=== PATIENT | male | born 1985 | race Caucasian/White ===

== ENCOUNTER 2019-10-18 17:29 | Emergency (ER) | payer SELFPAY ==
[2019-10-18 17:40] VITALS: BP 127/88; PULSE 89; RESP 16; TEMP 36.8; O2SAT 97; BMI 25.8
--- NOTE | 2019-10-18 17:46 | DI.CT.S_ITS ---
PROCEDURE: CT STROKE INDICATIONS: left sided weakness/numbness improving, confused 1-2 days ag TECHNIQUE: Noncontrast 4.5 mm thick angled axial sections acquired from the foramen magnum to the vertex, with coronal reformats. For radiation dose reduction, the following was used: automated exposure control, adjustment of mA and/or kV according to patient size. COMPARISON: None. FINDINGS: Image quality: Excellent. CSF spaces: Basal cisterns are patent. No extra-axial fluid collections. Ventricles are normal in size and shape. Brain: No midline shift. No intracranial masses or hemorrhage. Brown-white matter interface is normal. Skull and face: Calvarium and visualized facial bones are intact, without suspicious lesions. Sinuses: Visualized sinuses and mastoids are clear. IMPRESSION: Normal examination, no area of stroke or mass, or hemorrhage is found. Source of current symptoms is not identified. Dictated by: Ralph Ordoñez M.D. on 10/18/2019 at 18:26 Approved by: Ralph Ordoñez M.D. on 10/18/2019 at 18:29
[2019-10-18 18:02] LABS: INR 1.1 (0.9-1.3); Prothrombin Time 12.2 SECONDS (10.1-12.7)
[2019-10-18] MEDS: SODIUM CHLORIDE 0.9% 1,000 ML 150 ML IV (18:03)
[2019-10-18 18:04] LABS: BUN Creatinine Ratio 13.2 (6-22); Blood Urea Nitrogen 10 mg/dL (9-20); Calcium 9.2 mg/dL (8.4-10.2); Carbon Dioxide 20 mmol/L (22-32); Chloride 106 mmol/L (98-107); Estimated Glomerular Filt Rate > 60.0 mL/min (>60); Glucose 113 mg/dL (70-100); HEMOLYSIS < 15 (0-50); PTT Partial Thromboplastin Tim 31 SECONDS (26.4-36.2); Potassium 3.7 mmol/L (3.4-5.1); Sodium 139 mmol/L (137-145)
--- NOTE | 2019-10-18 18:08 | ED_ITS ---
HPI - Neuro Symptoms/Deficit General Chief Complaint: Neuro Symptoms/Deficit Stated Complaint: Left Sided Weakness Time Seen by Provider: 10/18/19 17:46 Source: patient and EMS Mode of arrival: EMS Limitations: no limitations History of Present Illness HPI Narrative: 33M nonsmoker with noncontributory medical history presents by EMS for evaluation of vague neurologic symptoms over the course of the week. He 1st noticed palpitations, racing heart, dizziness and lightheadedness on Sunday. He states the symptoms lasted about 3 hours and then went away. He denied any chest pain at any point time. He has had no injury, fever or chills. He denies any headache. He has had other symptoms off and on including some blurred vision, fatigue and mentions left-sided numbness and tingling that has been present since at least yesterday. He denies any new medications or dietary change. He denies any illicit drugs. He takes no prescription medications. He denies any exposure persons known to have coronavirus and denies any use of blood thinners. He denies any obvious provocation or palliation of his symptom s. He states that he is asymptomatic on arrival Onset (ago): day(s) Location: left arm, left leg and ataxia History of same: No Severity: moderate Quality: weak, numb, tingling and improving Relieving factors: none Exacerbating factors: none On Anticoagulants: No Associated symptoms: confusion Treatments Prior to Arrival: none Review of Systems Constitutional Constitutional: Denies chills, Denies fatigue, Denies fever(s), Denies frequent falls, Denies lethargy and Reports weakness Eyes Eyes: Denies change in vision, Denies eye discharge, Denies irritation and Denies loss of vision ENT Ears, Nose, Mouth, and Throat: Denies change in voice, Reports dizziness, Denies neck pain, Denies sore throat and Denies throat swelling Cardiovascular Cardiovascular: Denies chest pain, Denies irregular heart rhythm, Denies lightheadedness, Denies palpitations, Denies dyspnea, Denies dyspnea on exertion and Denies orthopnea Respiratory Respiratory: Denies cough, Denies dyspnea, Denies dyspnea on exertion and Denies wheezing Gastrointestinal Gastrointestinal: Denies abdominal pain, Denies change in bowel habits, Denies diarrhea, Denies nausea and Denies vomiting Genitourinary Genitourinary: Denies hematuria, Denies flank pain, Denies urinary incontinence and Denies urinary urgency Musculoskeletal Musculoskeletal: Denies back pain, Denies muscle weakness, Denies neck pain, Denies numbness and Reports tingling Integumentary/Breasts Skin/Breast: Denies pruritus, Denies erythema, Denies rash and Denies wounds Neurologic Neurologic: Denies behavioral changes, Reports confusion, Reports dizziness, Denies frequent falls, Denies loss of vision, Denies numbness, Reports tingling and Reports weakness Psychiatric Psychiatric: Denies anxiety, Denies behavioral changes, Reports confusion, Denies depression, Denies homicidal ideation and Denies suicidal ideation Endocrine Endocrine: Denies fatigue, Denies flushing and Denies palpitations Hematologic/Lymphatic Hematologic/Lymphatic: Denies easy bruising Allergic/Immunologic Allergic/Immunologic: Denies urticaria, Denies throat swelling and Denies wheezing Patient History Social History Smoking Status: Never smoker Smoking Status: Never smoker alcohol intake frequency: 0-2 drinks per day Substance Use Type: does not use Exam Narrative Exam Narrative: GENERAL: [33] year old patient appears stated age. Well-nou rished, well-developed patient, in mild distress. HEAD: Atraumatic. Normocephalic. EYES: Pupils equal round and reactive. Extraocular motions intact. No scleral icterus. No injection or drainage. ENT: Nose without bleeding, purulent drainage. Throat without erythema, tonsillar hypertrophy or exudate. Airway patent. NECK: Trachea midline. Non tender CARDIOVASCULAR: Regular rate and rhythm without murmurs, gallops, or rubs. RESPIRATORY: Clear to auscultation. Breath sounds equal bilaterally. No wheezes, rales, or rhonchi. GASTROINTESTINAL: Abdomen soft, non-tender, nondistended. EXTREMITIES: No edema or joint tenderness. BACK: Nontender without deformity or crepitance. No flank tenderness. NEURO: AOx3. SKIN: No rash or erythema of visible areas NIH Stroke Scale 1a. LOC: Patient is alert and keenly responsive (0) 1b. LOC Questions: Patient answers both LOC questions accurately (0) 1c. LOC Commands: Patient performs both tasks correctly (0) 2. Best Gaze: Normal (0) 3. Visual: No visual loss (0) 4. Facial palsy: Normal symmetrical movements (0) 5. Motor arm: No drift (0) 6. Motor leg: No drift (0) 7. Limb ataxia: Absent (0) 8. Sensory: Normal (0) 9. Best language: No aphasia; normal (0) 10. Dysarthria: Normal (0) 11. Extinction and inattention: No abnormality (0) NIHSS: 0 Initial Vital Signs Initial Vital Signs: Vital Signs Temperature 98.3 F 10/18/19 17:40 Pulse Rate 89 10/18/19 17:40 Respiratory Rate 16 10/18/19 17:40 Blood Pressure 127/88 10/18/19 17:40 Pulse Oximetry 97 10/18/19 17:40 Course Orders Ordered: ED Orders 10/18/19 17:31 EKG-12 Lead Stat 10/18/19 17:36 Basic Metabolic Panel Stat Complete Blood Count AUTO DIFF Stat Partial Thromboplastin Time Stat Prothrombin Time INR Stat 10/18/19 17:46 CT Stroke Stat 10/18/19 18:28 CT angio head and neck Stat 10/18/19 19:38 Urine Culture Stat Urine Drug Screen, Rapid Stat Urine Microscopic Stat Discontinued Medications Sodium Chloride (Normal Saline 0.9%) 1,000 mls @ 150 mls/hr IV CONT ANGELA Last Infusion: 10/18/19 20:27 Dose: 0 mls/hr Documented by: Admin: 10/18/19 18:03 Dose: 150 mls/hr Documented by: CHARLENE Vital Signs Vital signs: Vital Signs - 8 hr 10/18/19 18:22 10/18/19 18:55 10/18/19 19:30 Pulse Rate 92 H 82 95 H Respiratory Rate 13 16 21 Blood Pressure Blood Pressure [Left Arm] 126/82 124/76 144/84 H Pulse Oximetry 99 98 10/18/19 20:00 10/18/19 20:28 Pulse Rate 84 81 Respiratory Rate 17 14 Blood Pressure 131/81 Blood Pressure [Left Arm] 130/81 Pulse Oximetry 97 99 MDM - Neuro Symptoms/Deficit Lab Data Result diagrams: 10/18/19 17:36 10/18/19 17:36 Labs: Lab Results 10/18/19 10/18/19 10/18/19 Range/Units 17:36 17:36 17:36 WBC 7.5 (4.5-11.0) X10^3/uL RBC 5.14 (4.5-5.9) X10^6/uL Hgb 15.8 (13.5-17.5) g/dL Hct 44.1 (41-53) % MCV 85.9 (80-100) fL MCH 30.7 (26-34) PG MCHC 35.7 (30-36) % RDW 12.6 (11.6-14.8) % Plt Count 288 (150-400) X10^3/uL Neut % (Auto) 86.3 H (50-75) % Lymph % (Auto) 8.8 L (25-40) % [place] % (Auto) 4.4 (3-14) % Eos % (Auto) 0.2 L (2-4) % Baso % (Auto) 0.3 (0-2) % Neut # (Auto) 6500 (3736-9577) /uL Lymph # (Auto) 700 L (2192-3594) /uL [place] # (Auto) 300 (0-900) /uL Eos # (Auto) 0 (0-450) /uL Baso # (Auto) 0 (0-100) /uL PT 12.2 (10.1-12.7) SECONDS INR 1.1 (0.9-1.3) APTT 31 (26.4-36.2) SECONDS Sodium 139 (137-145) mmol/L Potassium 3.7 (3.4-5.1) mmol/L Chloride 106 (98-107) mmol/L Carbon Dioxide 20 L (22-32) mmol/L BUN 10 (9-20) mg/dL Creatinine 0.76 (0.66-1.25) mg/dL Estimated GFR > 60.0 (>60) mL/min BUN/Creatinine Ratio 13.2 (6-22) Glucose 113 H (70-100) mg/dL Calcium 9.2 (8.4-10.2) mg/dL Urine RBC (0-5/HPF) Urine WBC (0-5/HPF) Urine Bacteria (None) Ur Culture Indicated? U Opiates 300ng/mL cut (Negative) Ur Oxycodone Screen (Negative) Urine Methadone Screen (Negative) Ur Barbiturates Screen (Negative) U Tricyclic Antidepress (Negative) Ur Phencyclidine Scrn (Negative) Ur Amphetamines Screen (Negative) U Methamphetamines Scrn (Negative) Ur MDMA Scrn (Ecstasy) (Negative) U Benzodiazepines Scrn (Negative) Urine Cocaine Screen (Negative) U Marijuana (THC) Screen (Negative) 10/18/19 10/18/19 Range/Units 19:38 19:38 WBC (4.5-11.0) X10^3/uL RBC (4.5-5.9) X10^6/uL Hgb (13.5-17.5) g/dL Hct (41-53) % MCV (80-100) fL MCH (26-34) PG MCHC (30-36) % RDW (11.6-14.8) % Plt Count (150-400) X10^3/uL Neut % (Auto) (50-75) % Lymph % (Auto) (25-40) % [place] % (Auto) (3-14) % Eos % (Auto) (2-4) % Baso % (Auto) (0-2) % Neut # (Auto) (4329-3521) /uL Lymph # (Auto) (1327-2121) /uL [place] # (Auto) (0-900) /uL Eos # (Auto) (0-450) /uL Baso # (Auto) (0-100) /uL PT (10.1-12.7) SECONDS INR (0.9-1.3) APTT (26.4-36.2) SECONDS Sodium (137-145) mmol/L Potassium (3.4-5.1) mmol/L Chloride (98-107) mmol/L Carbon Dioxide (22-32) mmol/L BUN (9-20) mg/dL Creatinine (0.66-1.25) mg/dL Estimated GFR (>60) mL/min BUN/Creatinine Ratio (6-22) Glucose (70-100) mg/dL Calcium (8.4-10.2) mg/dL Urine RBC 0-1/hpf (0-5/HPF) Urine WBC None seen (0-5/HPF) Urine Bacteria Occasional (0-1) (None) Ur Culture Indicated? Specimen cultured U Opiates 300ng/mL cut Negative (Negative) Ur Oxycodone Screen Negative (Negative) Urine Methadone Screen Negative (Negative) Ur Barbiturates Screen Negative (Negative) U Tricyclic Antidepress Negative (Negative) Ur Phencyclidine Scrn Negative (Negative) Ur Amphetamines Screen Negative (Negative) U Methamphetamines Scrn Negative (Negative) Ur MDMA Scrn (Ecstasy) Negative (Negative) U Benzodiazepines Scrn Negative (Negative) Urine Cocaine Screen Negative (Negative) U Marijuana (THC) Screen Positive H (Negative) Point of Care Testing Glucose POC 101 Urine Dip Bedside Urine Glucose Negative Bedside Urine Bilirubin - Negative Bedside Urine Ketone ++ 40 Urine Specific Benedict 1.015 Bedside Urine Occult Blood - Negative Bedside Urine pH 6.5 Bedside Urine Protein - Negative Bedside Urine Urobilinogen - Negative Bedside Urine Nitrite - Negative Bedside Urine Leukocytes +/- [address] scan - head: Radiologist's Impression: [address] [address] [address] Scan Report Signed Patient: Alix Bradford#: [id number] : 1985Acct:[id number] Age/Sex: 33 / MDate of Service: 10/18/19 Loc: ED Accession Number: [id number] Procedure: CT Stroke Ordering Provider: Karon Plata D.O. PROCEDURE: CT STROKE INDICATIONS: left sided weakness/numbness improving, confused 1-2 days ag TECHNIQUE: Noncontrast 4.5 mm thick angled axial sections acquired from the foramen magnum to the vertex, with coronal reformats. For radiation dose reduction, the following was used: automated exposure control, adjustment of mA and/or kV according to patient size. COMPARISON: None. FINDINGS: Image quality: Excellent. CSF spaces: Basal cisterns are patent. No extra-axial fluid collections. Ve ntricles are normal in size and shape. Brain: No midline shift. No intracranial masses or hemorrhage. Brown-white matter interface is normal. Skull and face: Calvarium and visualized facial bones are intact, without suspicious lesions. Sinuses: Visualized sinuses and mastoids are clear. IMPRESSION: Normal examination, no area of stroke or mass, or hemorrhage is found. Source of current symptoms is not identified. Dictated by: Ralph Ordoñez M.D. on 10/18/2019 at 18:26 Approved by: Ralph Ordoñez M.D. on 10/18/2019 at 18:29 CTA Head/Neck: Radiologist's Impression: Chart Viewer Diagnostics DATE TYPE STATUS AUTHOR Hx 10/18/19 18:28 Ralph Ordoñez 10/18/19 17:46 Ralph Ordoñez Jacob 33, M1985 [facility] ED 167.64cm 72.575kg BMI: 25.8kg/m? Neuro Symptoms/Deficit Search Chart No Data to Display No Data to Display No Data to Display ONSET 10/18/19 20:28 Calvin Bradford 33 M 1985 [place] [address] CT Scan Report Signed Patient: Calvin BradfordMR#: [id number] : 1985Acct:[id number] Age/Sex: 33 / MDate of Service: 10/18/19 Loc: ED Accession Number: [id number] Procedure: CT angio head and neck Ordering Provider: Ralf Pinto D.O. PROCEDURE: CT ANGIO HEAD AND NECK INDICATIONS: stroke like symptoms, left sided weakness, balance trouble TECHNIQUE: Pre-contrast 4.5 mm thick sections acquired from the foramen magnum to the vertex. After the administration of intravenous contrast, 1 mm thick sections acquired from the aortic arch through the [place] of [place]. Post-contrast 4.5 mm thick sections then re- acquired from the foramen magnum to the vertex. 3-dimensional maximum -intensity-projection (MIP) and/or volume rendering reformats were acquired of the central intracranial vasculature and neck separately. COMPARISON: None. FINDINGS: Image quality: Excellent. BRAIN: CSF spaces: Ventricles are normal in size and shape. Basal cisterns are patent. No extra-axial fluid collections. Brain: No midline shift. No intracranial bleeds or masses. Brown-white matter interface appears intact. Skull and face: Calvarium and facial bones appear intact, without suspicious lesions. Orbits appear normal. Sinuses: Sinuses and mastoids are clear. HEAD CT ANGIOGRAPHY: Anterior circulation: Intracranial internal carotid arteries are normal in size and flow. The flow within the paired anterior cerebral arteries is normal and symmetric. The flow within the middle cerebral arteries is normal and symmetric. The anterior communicating artery is seen. No aneurysms are seen. Posterior circulation: Visualized portions of the vertebral arteries demonstrate normal caliber, and join to form a normal appearing basilar artery. Flow within the po sterior cerebral arteries is normal and symmetric. No aneurysms are seen. NECK CT ANGIOGRAPHY: Carotid system: The great vessels demonstrate a conventional anatomy as they arise from the aortic arch. The origins of the common carotid arteries appear patent. The common carotid arteries demonstrate normal caliber and courses. The bifurcation regions are both widely patent. The internal carotid arteries demonstrate normal calibers and courses. Posterior circulation: The origins of the vertebral arteries both appear widely patent. The more superior extracranial portions of both vertebral arteries also demonstrate normal courses and calibers. They join to form a normal appearing basilar artery. Soft tissues: Visualized neck soft tissues demonstrate no suspicious abnormalities. Bones: No suspicious bony lesions. Visualized cervical spine appears normally aligned. IMPRESSION: No abnormality found. Any quantitative measurements of stenosis were performed using NASCET criteria. Dictated by: Ralph Ordoñez M.D. on 10/18/2019 at 19:13 Approved by: Ralph Ordoñez M.D. on 10/18/2019 at 19:16 [facility] Narrative Medical decision making narrative: Multiple etiologies for patient's symptoms considered including: [Cardiac arrhythmia versus stroke versus meningitis versus electrolyte abnormality versus illicit drug use versus other] Patient's symptoms improved or duration of stay with above-stated therapies. Findings and discharge diagnosis discussed with patient/family followed by verbalization of understanding Return precautions discussed with patient/family whom verbalize understanding. Discharge Plan Departure Patient Disposition: Home Clinical Impression: Heart palpitations, Dizziness Discharge Date/Time: 10/18/19 20:29 Instructions: Arrhythmias Activity Restrictions/Additional Instructions: *You have been diagnosed with [episodes of dizziness and palpitations, currently resolved] *What to do: * continue to take vitamins and supplements as directed *Follow up with your primary care provider in 2-3 days, call for an appointment. Let them know you were seen in the Emergency Department and that we ask that you be seen in follow up. It would seem reasonable to consider a monitor like a Holter or Zio to evaluate for possible abnormal heart rhythms and even possible an echocardiogram *Return to ER if you should have any new, worsening or concerning symptoms Referrals: [facility] [Outside]
[2019-10-18 18:13] LABS: Basophils Absolute Auto 0 /uL (0-100); Eosinophils Absolute Auto 0 /uL (0-450); Lymphocytes Absolute Auto 700 /uL (1100-4500); Monocytes Absolute Auto 300 /uL (0-900)
[2019-10-18 18:22] VITALS: BP 126/82; PULSE 92; RESP 13; O2SAT 99
[2019-10-18 18:23] LABS: Add Manual Diff / Slide Review NO; Basophils Percent Auto 0.3 % (0-2); Eosinophils Percent Auto 0.2 % (2-4); Hematocrit 44.1 % (41-53); Hemoglobin 15.8 g/dL (13.5-17.5); Lymphocytes Percent Auto 8.8 % (25-40); Mean Corpuscular HGB Conc 35.7 % (30-36); Mean Corpuscular Hemoglobin 30.7 PG (26-34); Mean Corpuscular Volume 85.9 fL (80-100); Monocytes Percent Auto 4.4 % (3-14); Neutrophils Absolute Auto 6500 /uL (1500-7000); Neutrophils Percent Auto 86.3 % (50-75); Platelet Count 288 X10^3/uL (150-400); Red Blood Cell Count 5.14 X10^6/uL (4.5-5.9); Red Cell Distribution Width 12.6 % (11.6-14.8); White Blood Cell Count 7.5 X10^3/uL (4.5-11.0)
--- NOTE | 2019-10-18 18:28 | DI.CT.S_ITS ---
PROCEDURE: CT ANGIO HEAD AND NECK INDICATIONS: stroke like symptoms, left sided weakness, balance trouble TECHNIQUE: Pre-contrast 4.5 mm thick sections acquired from the foramen magnum to the vertex. After the administration of intravenous contrast, 1 mm thick sections acquired from the aortic arch through the [place]. Post-contrast 4.5 mm thick sections then re-acquired from the foramen magnum to the vertex. 3-dimensional rnfuiam-ceniacmoi-nlimtlkpbw (MIP) and/or volume rendering reformats were acquired of the central intracranial vasculature and neck separately. COMPARISON: None. FINDINGS: Image quality: Excellent. BRAIN: CSF spaces: Ventricles are normal in size and shape. Basal cisterns are patent. No extra-axial fluid collections. Brain: No midline shift. No intracranial bleeds or masses. Brown-white matter interface appears intact. Skull and face: Calvarium and facial bones appear intact, without suspicious lesions. Orbits appear normal. Sinuses: Sinuses and mastoids are clear. HEAD CT ANGIOGRAPHY: Anterior circulation: Intracranial internal carotid arteries are normal in size and flow. The flow within the paired anterior cerebral arteries is normal and symmetric. The flow within the middle cerebral arteries is normal and symmetric. The anterior communicating artery is seen. No aneurysms are seen. Posterior circulation: Visualized portions of the vertebral arteries demonstrate normal caliber, and join to form a normal appearing basilar artery. Flow within the posterior cerebral arteries is normal and symmetric. No aneurysms are seen. NECK CT ANGIOGRAPHY: Carotid system: The great vessels demonstrate a conventional anatomy as they arise from the aortic arch. The origins of the common carotid arteries appear patent. The common carotid arteries demonstrate normal caliber and courses. The bifurcation regions are both widely patent. The internal carotid arteries demonstrate normal calibers and courses. Posterior circulation: The origins of the vertebral arteries both appear widely patent. The more superior extracranial portions of both vertebral arteries also demonstrate normal courses and calibers. They join to form a normal appearing basilar artery. Soft tissues: Visualized neck soft tissues demonstrate no suspicious abnormalities. Bones: No suspicious bony lesions. Visualized cervical spine appears normally aligned. IMPRESSION: No abnormality found. Any quantitative measurements of stenosis were performed using NASCET criteria. Dictated by: Ralph Ordoñez M.D. on 10/18/2019 at 19:13 Approved by: Ralph Ordoñez M.D. on 10/18/2019 at 19:16
[2019-10-18 18:55] VITALS: BP 124/76; PULSE 82; RESP 16
[2019-10-18 19:30] VITALS: BP 144/84; PULSE 95; RESP 21; O2SAT 98
[2019-10-18 19:50] LABS: WBC Urine None Seen (0-5/HPF)
[2019-10-18 19:57] LABS: UR Morphine/Opiate cutoff 300 Negative (Negative); Ur Creatinine Normal (Normal); Ur Specific Gravity Normal (Normal); Urine Amphetamines Negative (Negative); Urine Barbiturates Negative (Negative); Urine Benzodiazepines Negative (Negative); Urine Cocaine Negative (Negative); Urine MDMA Negative (Negative); Urine Methadone Negative (Negative); Urine Methamphetamines Negative (Negative); Urine Oxycodone Negative (Negative); Urine Phencyclidine Negative (Negative); Urine Tetrahydrocannabinol Positive (Negative); Urine Tricyclic Antidepressant Negative (Negative); Urine pH Normal (Normal)
[2019-10-18 20:00] VITALS: BP 130/81; PULSE 84; RESP 17; O2SAT 97
[2019-10-18 20:22] LABS: Bacteria Urine Occasional (0-1); RBC Urine 0-1/HPF (0-5/HPF)
[2019-10-18 20:23] LABS: Culture Indicated Urine Specimen Cultured
[2019-10-18 20:28] VITALS: BP 131/81; PULSE 81; RESP 14; O2SAT 99
== END 2019-10-18 20:29 | disposition home or self-care (01) ==
PROVIDERS: Emergency Medicine; Emergency Provider Emergency Medicine
DX: R00.2 Palpitations (principal); R42 Dizziness and giddiness; R20.0 Anesthesia of skin; R29.818 Other symptoms and signs involving the nervous system
CPT/HCPCS: 36415; 70450; 70496; 70498; 80048; 80305; 81003; 81015; 82962; 85025; 85610; 85730; 87086; 93005; 96360; 96361; 99285; Q9967